=== PATIENT | female | born 1980 | race Hispanic/Latino ===

== ENCOUNTER 2016-12-30 08:19 | Emergency (ER) | payer OTHER, SELFPAY ==
[2016-12-30] MEDS ORDERED: Ondansetron ODT 4 MG TAB ONE (08:27)
[2016-12-30] MEDS ORDERED: Meclizine HCl 25 MG TAB ONE (08:27)
== END 2016-12-30 10:05 | disposition home or self-care (01) ==
LOC: NAV ERS 08:19
DX: H81.13 Benign paroxysmal vertigo, bilateral (principal); H00.015 Hordeolum externum left lower eyelid; F32.9 Major depressive disorder, single episode, unspecified
CPT/HCPCS: 99283; Q0162